=== PATIENT | male | born 1970 | race Caucasian/White ===

== ENCOUNTER 2017-06-10 14:47 | Emergency (ER) | payer BC ==
--- NOTE | 2017-06-10 15:03 | CPEKG ---
Heart Rate: 53 RR Interval: 1132 P-R Interval: 160 QRSD Interval: 94 QT Interval: 424 QTC Interval: 399 P [place]: 52 QRS [place]: 39 T Wave [place]: 14 EKG Severity - NORMAL ECG - EKG Impression: SINUS RHYTHM Electronically Signed By: Ugo Be 10-Jun-2017 15:18:25
[2017-06-10] MEDS ORDERED: ASPIRIN 81 MG CHEWABLE TAB PO ONE (15:15)
--- NOTE | 2017-06-10 15:18 | EDPHY ---
H & P Stated Complaint: chest pain x 2 days Time Seen by Provider: 06/10/17 15:03 HPI/ROS: CHIEF COMPLAINT: Chest pain HISTORY OF PRESENT ILLNESS: Patient is a healthy 38-year-old man who comes to the emergency department complaining of chest pain that is progressing worse over the last 3 days. He describes it as a pressure in the center of his chest that radiates out holds both axilla. No shortness of breath. No nausea vomiting. No diaphoresis. No lightheadedness. He has a history of SVT and states that he has not felt any palpitations. He states that because of the SVT had a cardiac catheterization [address] Mccormick that was normal. He also has a history of peptic ulcer disease and GERD and states that this does not feel similar. No fevers or recent illness. No recent travel. No leg pain or swelling. No shortness of breath. No pleurisy. It is not changed with palpation or movement or deep inspiration. REVIEW OF SYSTEMS: Constitutional: denies: chills, fever, recent illness, recent injury EENTM: denies: blurred vision, double vision, nose congestion Respiratory: denies: cough, shortness of breath Cardiac: See HPI denies: irregular heart rate, lightheadedness, palpitations Gastrointestinal/Abdominal: denies: abdominal pain, diarrhea, nausea, vomiting, blood streaked stools Genitourinary: denies: dysuria, frequency, hematuria, pain Musculoskeletal: denies: joint pain, muscle pain Skin: denies: lesions, rash, jaundice, bruising Neurological: denies: headache, numbness, paresthesia, tingling, dizziness, weakness Hematologic/Lymphatic: denies: blood clots, easy bleeding, easy bruising Immunologic/allergic: denies: HIV/AIDS, transplant EXAM: GENERAL: Well-appearing, well-nourished and in no acute distress. HEAD: Atraumatic, normocephalic. EYES: Pupils equal round and reactive to light, extraocular movements intact, sclera anicteric, conjunctiva are normal. ENT: TMs normal, nares patent, oropharynx clear without exudates. Moist mucous membranes. NECK: Normal range of motion, supple without lymphadenopathy or JVD. LUNGS: Breath sounds clear to auscultation bilaterally and equal. No wheezes rales or rhonchi. HEART: Regular rate and rhythm without murmurs, rubs or gallops. ABDOMEN: Soft, nontender, normoactive bowel sounds. No guarding, no rebound. No masses appreciated. BACK: No CVA tenderness, no spinal tenderness, step-offs or deformities EXTREMITIES: Normal range of motion, no pitting or edema. No clubbing or cyanosis. NEUROLOGICAL: Cranial nerves II through XII grossly intact. Normal speech, normal gait. 5/5 strength, normal movement in all extremities, normal sensation PSYCH: Normal mood, normal affect. SKIN: Warm, dry, normal turgor, no visible rashes or lesions. Source: Patient Exam Limitations: No limitations - Personal History Current Tetanus Diphtheria and Acellular Pertussis (TDAP): Yes Tetanus Vaccine Date: UNSURE-HAS REGULAR CHECKUPS - Medical/Surgical History Hx Asthma: No Hx Chronic Respiratory Disease: No Hx Diabetes: No Hx Cardiac Disease: No Hx Renal Disease: No Hx Cirrhosis: No Hx Alcoholism: No Hx HIV/AIDS: No Hx Splenectomy or Spleen Trauma: No Other PMH: SVT, VASECTOMY; COLLAR BONE, gerd - Family History Significant Family History: No pertinent family hx - Social History Smoking Status: Never smoked Alcohol Use: Sober Drug Use: None Constitutional: Initial Vital Signs Temperature (C) 36.4 C 06/10/17 14:49 Heart Rate 62 06/10/17 14:49 Respiratory Rate 18 06/10/17 14:49 Blood Pressure 146/83 H 06/10/17 14:49 O2 Sat (%) 96 06/10/17 14:49 O2 Delivery Mode Room Air Allergies/Adverse Reactions: No Known Allergies Allergy (Verified 06/10/17 14:52) Home Medications: Medication Instructions Recorded Shazia Allergy 04/06/15 Zantac 04/06/15 ASPIRIN 06/21/16 Famotidine [Pepcid 20 MG (OTC)] 20 mg PO BID #30 tab 06/10/17 Medical Decision Making - Diagnostics EKG Interpretation: An EKG obtained and was read and documented in trace view. Please see trace view for full reading and report. Sinus bradycardia, no acute ischemic changes Imaging Results: Imaging Impressions Chest X-Ray 06/10/17 15:15 Impression: Clear lungs. No acute process. ED Course/Re-evaluation: 4:00 p.m. I discussed the case with the patient and his . He is feeling slightly better but still has some pressure. He has had the symptoms for 3 days and his troponin is negative which is reassuring however he states they seem to have gotten worse about 2 hours ago when he had mild lightheadedness and shortness of breath. He did not disclose this originally. I recommended a repeat troponin versus admission. He would like to talk about it with his . 8:00 p.m. the patient is asymptomatic. His repeat troponin is negative. He is eager to go home. I recommended follow-up stress test with his primary doctor within 72 hours. Patient is in agreement with this plan. We discussed indications for returning. We discussed angina symptoms. In the meantime I will treat him with antacids. He describes the pain is more of a burning sensation. Differential Diagnosis: Partial list of the Differential diagnosis considered include but were not limited to; angina, acute coronary disease, GERD and although unlikely based on the history and physical exam, I also considered pneumothorax, PE, arrhythmia. I discussed these differential diagnoses and the plan with the patient as well as the usual and expected course. The patient understands that the diagnosis is provisional and that in medicine we are not always correct and that further workup is often warranted. Usual and customary warnings were given. All of the patient's questions were answered. The patient was instructed to return to the emergency department should the symptoms at all worsen or return, otherwise to followup with the physician as we discussed. - Data Points Laboratory Results: Laboratory Results 06/10/17 15:06 06/10/17 15:06 06/10/17 06/10/17 06/10/17 19:11 15:06 15:06 WBC RBC Hgb Hct MCV MCH MCHC RDW Plt Count MPV Neut % (Auto) Lymph % (Auto) Heard % (Auto) Eos % (Auto) Baso % (Auto) Nucleat RBC Rel Count Absolute Neuts (auto) Absolute Lymphs (auto) Absolute Monos (auto) Absolute Eos (auto) Absolute Basos (auto) Absolute Nucleated RBC Immature Gran % Immature Gran # PT 13.2 SEC SEC (12.0-15.0) INR 1.01 (0.83-1.16) APTT 30.3 SEC SEC (23.0-38.0) D-Dimer < 0.27 ug/mLFEU ug/mLFEU (0.00-0.50) Sodium 138 mEq/L mEq/L (134-144) Potassium 3.7 mEq/L mEq/L (3.5-5.2) Chloride 101 mEq/L mEq/L (97-110) Carbon Dioxide 26 mEq/l mEq/l (22-31) Anion Gap 11 mEq/L mEq/L (8-16) BUN 16 mg/dL mg/dL (7-23) Creatinine 1.1 mg/dL mg/dL (0.7-1.3) Estimated GFR > 60 Glucose 97 mg/dL mg/dL (70-100) Calcium 9.4 mg/dL mg/dL (8.5-10.4) Total Bilirubin 0.7 mg/dL mg/dL (0.1-1.4) Conjugated Bilirubin 0.2 mg/dL mg/dL (0.0-0.5) Unconjugated Bilirubin 0.5 mg/dL mg/dL (0.0-1.1) AST 34 IU/L IU/L (17-59) ALT 45 IU/L IU/L (21-72) Alkaline Phosphatase 54 IU/L IU/L (38-126) Troponin I < 0.012 ng/mL ng/mL < 0.012 ng/mL ng/mL (0.000-0.034) (0.000-0.034) Total Protein 7.4 g/dL g/dL (6.3-8.2) Albumin 4.4 g/dL g/dL (3.5-5.0) Lipase 164 IU/L IU/L (23-300) 06/10/17 15:06 WBC 8.32 10^3/uL 10^3/uL (3.80-9.50) RBC 5.47 10^6/uL 10^6/uL (4.40-6.38) Hgb 16.9 g/dL g/dL (13.7-17.5) Hct 48.1 % % (40.0-51.0) MCV 87.9 fL fL (81.5-99.8) MCH 30.9 pg pg (27.9-34.1) MCHC 35.1 g/dL g/dL (32.4-36.7) RDW 12.4 % % (11.5-15.2) Plt Count 245 10^3/uL 10^3/uL (150-400) MPV 10.3 fL fL (8.7-11.7) Neut % (Auto) 57.8 % % (39.3-74.2) Lymph % (Auto) 32.6 % % (15.0-45.0) Heard % (Auto) 6.6 % % (4.5-13.0) Eos % (Auto) 2.2 % % (0.6-7.6) Baso % (Auto) 0.6 % % (0.3-1.7) Nucleat RBC Rel Count 0.0 % % (0.0-0.2) Absolute Neuts (auto) 4.81 10^3/uL 10^3/uL (1.70-6.50) Absolute Lymphs (auto) 2.71 10^3/uL 10^3/uL (1.00-3.00) Absolute Monos (auto) 0.55 10^3/uL 10^3/uL (0.30-0.80) Absolute Eos (auto) 0.18 10^3/uL 10^3/uL (0.03-0.40) Absolute Basos (auto) 0.05 10^3/uL 10^3/uL (0.02-0.10) Absolute Nucleated RBC 0.00 10^3/uL 10^3/uL (0-0.01) Immature Gran % 0.2 % % (0.0-1.1) Immature Gran # 0.02 10^3/uL 10^3/uL (0.00-0.10) PT INR APTT D-Dimer Sodium Potassium Chloride Carbon Dioxide Anion Gap BUN Creatinine Estimated GFR Glucose Calcium Total Bilirubin Conjugated Bilirubin Unconjugated Bilirubin AST ALT Alkaline Phosphatase Troponin I Total Protein Albumin Lipase Medications Given: Discontinued Medications Aspirin (Aspirin) 324 mg PO EDNOW ONE Stop: 06/10/17 15:16 Last Admin: 06/10/17 15:21 Dose: 324 mg Departure - Departure Disposition: Home, Routine, Self-Care Clinical Impression: Chest pain Qualifiers: Chest pain type: unspecified Qualified Code(s): R07.9 - Chest pain, unspecified Condition: Fair Instructions: Chest Pain (ED) Referrals: Chris Casillas MD [Primary Care Provider] - As per Instructions Prescriptions: Famotidine [Pepcid 20 MG (OTC)] 20 mg PO BID #30 tab
[2017-06-10 15:24] LABS: % IMMATURE GRANULYOCYTES 0.2 % (0.0-1.1); ABSOLUTE IMMATURE GRANULOCYTES 0.02 10^3/uL (0.00-0.10); ADD DIFF? NO; ADD MORPH? NO; ADD SCAN? NO; ATYPICAL LYMPHOCYTE FLAG 0 (0-99); FRAGMENT RBC FLAG 0 (0-99); HEMATOCRIT 48.1 % (40.0-51.0); HEMOGLOBIN 16.9 g/dL (13.7-17.5); LEFT SHIFT FLG 0 (0-99); LIPEMIA HEMOLYSIS FLAG 90 (0-99); MEAN CELL HEMOGLOBIN 30.9 pg (27.9-34.1); MEAN CELL HEMOGLOBIN CONCENTR. 35.1 g/dL (32.4-36.7); MEAN CELL VOLUME 87.9 fL (81.5-99.8); MEAN PLATELET VOLUME 10.3 fL (8.7-11.7); PLATELET CLUMPS FLAG 0 (0-99); PLATELET COUNT 245 10^3/uL (150-400); RED BLOOD CELL COUNT 5.47 10^6/uL (4.40-6.38); RED CELL DISTRIBUTION WIDTH 12.4 % (11.5-15.2)
[2017-06-10 15:31] LABS: ALANINE AMINOTRANSFERASE 45 IU/L (21-72); ALBUMIN 4.4 g/dL (3.5-5.0); ALKALINE PHOSPHATASE 54 IU/L (38-126); ANION GAP 11 mEq/L (8-16); ASPARTATE AMINOTRANSFERASE 34 IU/L (17-59); BILIRUBIN,TOTAL 0.7 mg/dL (0.1-1.4); BILIRUBIN-CONJUGATED 0.2 mg/dL (0.0-0.5); BILIRUBIN-UNCONJUGATED 0.5 mg/dL (0.0-1.1); CALCIUM 9.4 mg/dL (8.5-10.4); CARBON DIOXIDE 26 mEq/l (22-31); CHLORIDE 101 mEq/L (97-110); CREATININE 1.1 mg/dL (0.7-1.3); GLOMERULAR FILTRATION RATE > 60; GLUCOSE 97 mg/dL (70-100); POTASSIUM 3.7 mEq/L (3.5-5.2); SODIUM 138 mEq/L (134-144); TOTAL PROTEIN 7.4 g/dL (6.3-8.2)
[2017-06-10 15:41] LABS: TROPONIN I < 0.012 ng/mL (0.000-0.034)
[2017-06-10 15:44] LABS: INR 1.01 (0.83-1.16); PROTIME(PATIENT) 13.2 SEC (12.0-15.0)
[2017-06-10 15:45] LABS: APTT 30.3 SEC (23.0-38.0)
[2017-06-10 20:09] VITALS: BP 123/90; PULSE 55; RESP 18; TEMP 98.1; O2SAT 95
== END 2017-06-10 20:09 | disposition home or self-care (01) ==
DX: R07.9 Chest pain, unspecified (principal); Z79.82 Long term (current) use of aspirin

== ENCOUNTER 2017-07-12 04:03 | Emergency (ER) | payer BC ==
[2017-07-12 04:43] LABS: % IMMATURE GRANULYOCYTES 0.3 % (0.0-1.1); ABSOLUTE IMMATURE GRANULOCYTES 0.02 10^3/uL (0.00-0.10); ADD DIFF? NO; ADD MORPH? NO; ADD SCAN? NO; ATYPICAL LYMPHOCYTE FLAG 10 (0-99); FRAGMENT RBC FLAG 0 (0-99); HEMATOCRIT 47.1 % (40.0-51.0); HEMOGLOBIN 16.9 g/dL (13.7-17.5); LEFT SHIFT FLG 0 (0-99); LIPEMIA HEMOLYSIS FLAG 90 (0-99); MEAN CELL HEMOGLOBIN 31.2 pg (27.9-34.1); MEAN CELL HEMOGLOBIN CONCENTR. 35.9 g/dL (32.4-36.7); MEAN CELL VOLUME 86.9 fL (81.5-99.8); MEAN PLATELET VOLUME 10.4 fL (8.7-11.7); PLATELET CLUMPS FLAG 20 (0-99); PLATELET COUNT 200 10^3/uL (150-400); RED BLOOD CELL COUNT 5.42 10^6/uL (4.40-6.38); RED CELL DISTRIBUTION WIDTH 12.9 % (11.5-15.2)
[2017-07-12] MEDS ORDERED: DILTIAZEM 25 MG/5 ML VIAL IVP ONE (04:50)
--- NOTE | 2017-07-12 04:50 | CPEKG ---
Heart Rate: 139 RR Interval: 432 QRSD Interval: 84 QT Interval: 320 QTC Interval: 487 QRS [place]: 42 T Wave [place]: 43 EKG Severity - ABNORMAL ECG - EKG Impression: ATRIAL FIBRILLATION, V-RATE 121-156 EKG Impression: BORDERLINE PROLONGED QT INTERVAL Electronically Signed By: Erika Varghese 12-Jul-2017 05:27:59
[2017-07-12 04:55] LABS: ANION GAP 12 mEq/L (8-16); CARBON DIOXIDE 25 mEq/l (22-31); CHLORIDE 108 mEq/L (97-110); CREATININE 0.9 mg/dL (0.7-1.3); GLOMERULAR FILTRATION RATE > 60; GLUCOSE 100 mg/dL (70-100); SODIUM 145 mEq/L (134-144)
[2017-07-12 05:07] LABS: TROPONIN I < 0.012 ng/mL (0.000-0.034)
--- NOTE | 2017-07-12 05:13 | CPEKG ---
Heart Rate: 52 RR Interval: 1154 P-R Interval: 148 QRSD Interval: 90 QT Interval: 408 QTC Interval: 380 P [place]: 14 QRS [place]: 22 T Wave [place]: 15 EKG Severity - NORMAL ECG - EKG Impression: SINUS RHYTHM Electronically Signed By: Erika Varghese 12-Jul-2017 05:27:49
--- NOTE | 2017-07-12 05:23 | EDPHY ---
H & P Stated Complaint: RAPID HEARTRATE THEN SLOW SINCE 130 Time Seen by Provider: 07/12/17 04:18 HPI/ROS: HPI The patient presents with palpitations which began tonight at about 115 in the morning when he awoke from sleep and rolled over in the bed. They began suddenly and have been constant ever since. He has mild lightheadedness, though denies any chest pain or shortness of breath. He has a heart monitor which he has been using lately and was able to record his heart rate. He took a dose of propanolol 5 mg which she has at home for history of SVT. He reports having these episodes intermittently over the last few weeks lasting for a few hours at a time, a seem to be getting more frequent he says. He does have a history of PVCs, however this feels different. He was recently seen by his pet ambassador, Dr. Mccormick after an episode of chest pain and had a stress test, echo cardiogram, nuclear stress test which were all normal according to him. He takes a baby aspirin daily. REVIEW OF SYSTEMS Constitutional: No fever, no chills. Eyes: No discharge. ENT: No sore throat. Cardiovascular: No chest pain, no palpitations. Respiratory: No cough, no shortness of breath. Gastrointestinal: No abdominal pain, no vomiting. Genitourinary: No hematuria. Musculoskeletal: No back pain. Skin: No rashes. Neurological: No headache. PMHx: GERD Soc Hx: Stop drinking alcohol over the last several weeks because of his palpitations FHx: PHYSICAL General Appearance: Alert, no distress Eyes: Pupils equal and round no pallor or injection ENT, Mouth: Mucous membranes moist Respiratory: There are no retractions, lungs are clear to auscultation Cardiovascular: Irregularly irregular Gastrointestinal: Abdomen is soft and non-tender, no masses, bowel sounds normal Neurological: A&O, moves all extremities Skin: Warm and dry, no rashes Musculoskeletal: Neck is supple non tender Extremities: symmetrical, full range of motion Psychiatric: Patient is oriented X 3, there is no agitation Source: Patient Exam Limitations: No limitations - Personal History Current Tetanus/Diphtheria Vaccine: Yes Current Tetanus Diphtheria and Acellular Pertussis (TDAP): Yes Tetanus Vaccine Date: UNSURE-HAS REGULAR CHECKUPS - Medical/Surgical History Hx Asthma: No Hx Chronic Respiratory Disease: No Hx Diabetes: No Hx Cardiac Disease: No Hx Renal Disease: No Hx Cirrhosis: No Hx Alcoholism: No Hx HIV/AIDS: No Hx Splenectomy or Spleen Trauma: No Other PMH: VASECTOMY; COLLAR BONE, gerd, HEART WORK UP - Social History Smoking Status: Never smoked Constitutional: Initial Vital Signs Temperature (C) 36.4 C 07/12/17 04:09 Heart Rate 69 07/12/17 04:09 Respiratory Rate 18 07/12/17 04:09 Blood Pressure 140/100 H 07/12/17 04:09 O2 Sat (%) 95 07/12/17 04:09 O2 Delivery Mode Room Air Allergies/Adverse Reactions: No Known Allergies Allergy (Verified 07/12/17 04:11) Home Medications: Medication Instructions Recorded Shazia Allergy 04/06/15 Zantac 04/06/15 ASPIRIN 06/21/16 Famotidine [Pepcid 20 MG (OTC)] 20 mg PO BID #30 tab 06/10/17 Medical Decision Making - Diagnostics EKG Interpretation: EKG 1: Complete interpretation has been separately recorded in the [facility] archive. Summary impression: Atrial fibrillation with rate in the 140s EKG 2: Complete interpretation has been separately recorded in the [facility] archive. Summary impression: Normal sinus rhythm with rate of 52 Differential Diagnosis: This is a 46-year-old male, history of SVT, now with several weeks of episodes of palpitations, increasing in frequency, presents with an episode which began this morning while lying in bed. On arrival, he is in a fast irregular rhythm, EKG reveals atrial fibrillation with rate of about 140. He has no prior history of atrial fibrillation, but I suspect he is having paroxysms over the last several weeks. In the emergency department, he was placed on the cryptologic linguist, basic labs were drawn. I had ordered a dose of diltiazem, however he spontaneously converted to a normal sinus rhythm with a rate in the 50s. This could be related to the propanolol 5 mg he took prior to arrival. Labs were checked and they were all unremarkable. Chads Vasc score calculated at 0, thus I feel the baby aspirin that he is taking is sufficient for anticoagulation to prevent CVA. I consulted with Dr. Sven Palm telegraph office telephone clerk for Cardiology and he agrees with follow -up with Dr. Mccormick as planned, continuing aspirin, taking propanolol p.r.n.. - Data Points Laboratory Results: Laboratory Results 07/12/17 04:30 07/12/17 04:30 07/12/17 07/12/17 04:30 04:30 WBC 7.60 10^3/uL 10^3/uL (3.80-9.50) RBC 5.42 10^6/uL 10^6/uL (4.40-6.38) Hgb 16.9 g/dL g/dL (13.7-17.5) Hct 47.1 % % (40.0-51.0) MCV 86.9 fL fL (81.5-99.8) MCH 31.2 pg pg (27.9-34.1) MCHC 35.9 g/dL g/dL (32.4-36.7) RDW 12.9 % % (11.5-15.2) Plt Count 200 10^3/uL 10^3/uL (150-400) MPV 10.4 fL fL (8.7-11.7) Neut % (Auto) 60.4 % % (39.3-74.2) Lymph % (Auto) 28.0 % % (15.0-45.0) Garza % (Auto) 8.2 % % (4.5-13.0) Eos % (Auto) 2.4 % % (0.6-7.6) Baso % (Auto) 0.7 % % (0.3-1.7) Nucleat RBC Rel Count 0.0 % % (0.0-0.2) Absolute Neuts (auto) 4.60 10^3/uL 10^3/uL (1.70-6.50) Absolute Lymphs (auto) 2.13 10^3/uL 10^3/uL (1.00-3.00) Absolute Monos (auto) 0.62 10^3/uL 10^3/uL (0.30-0.80) Absolute Eos (auto) 0.18 10^3/uL 10^3/uL (0.03-0.40) Absolute Basos (auto) 0.05 10^3/uL 10^3/uL (0.02-0.10) Absolute Nucleated RBC 0.00 10^3/uL 10^3/uL (0-0.01) Immature Gran % 0.3 % % (0.0-1.1) Immature Gran # 0.02 10^3/uL 10^3/uL (0.00-0.10) Sodium 145 mEq/L H mEq/L (134-144) Potassium 4.0 mEq/L mEq/L (3.5-5.2) Chloride 108 mEq/L mEq/L (97-110) Carbon Dioxide 25 mEq/l mEq/l (22-31) Anion Gap 12 mEq/L mEq/L (8-16) BUN 13 mg/dL mg/dL (7-23) Creatinine 0.9 mg/dL mg/dL (0.7-1.3) Estimated GFR > 60 Glucose 100 mg/dL mg/dL (70-100) Calcium 9.0 mg/dL mg/dL (8.5-10.4) Troponin I < 0.012 ng/mL ng/mL (0.000-0.034) Medications Given: Discontinued Medications Diltiazem HCl (Cardizem 25 Mg/5 Ml Vial) 15 mg IVP EDNOW ONE Stop: 07/12/17 04:51 Last Admin: 07/12/17 05:07 Dose: Not Given Departure - Departure Disposition: Home, Routine, Self-Care Clinical Impression: Paroxysmal atrial fibrillation Condition: Good Instructions: A-fib (Atrial Fibrillation) (ED) Referrals: Chris Casillas MD [Primary Care Provider] - As per Instructions Rene Mccormick MD [Medical Doctor] - As per Instructions
[2017-07-12 05:56] VITALS: BP 107/80; PULSE 54; RESP 16; TEMP 97.9; O2SAT 94
== END 2017-07-12 05:55 | disposition home or self-care (01) ==
DX: I48.0 Paroxysmal atrial fibrillation (principal); Z79.82 Long term (current) use of aspirin